=== PATIENT | female | born 1995 | race Hispanic/Latino ===

== ENCOUNTER 2018-03-03 17:24 | Emergency (ER) | payer OTHER ==
[2018-03-03 17:33] VITALS: BP 127/83
[2018-03-03] MEDS ORDERED: TORADOL IV ONE (19:24)
[2018-03-03 19:34] LABS: Bacteria,Urine 2+ /HPF (Negative); Hyaline Casts,Urine 1 /LPF
[2018-03-03 19:42] LABS: HCG Qualitative,Urine Negative (Negative)
--- NOTE | 2018-03-03 19:43 | Emergency Department Report ---
ED Back Pain/Injury HPI - General Chief Complaint: Back Pain/Injury Stated Complaint: LOWER BACK INJURY Time Seen by Provider: 03/03/18 19:06 Source: EMS Limitations: Physical Limitation - History of Present Illness Initial Comments: 23-year-old female comes in stating that she was kneed in the back while playing basketball around 1515 today. Patient reports that the pain is sharp 829 out of 10 with movement and at rest it that 1 out of 10. Patient denies any urinary or bowel incontinence. Patient reports no past medical history currently takes no medications on a daily basis has no known drug allergies and does not do illicit drugs. Patient is accompanied by her father. Patient was given fentanyl by EMS prior to arrival. MD Complaint: back pain, back injury -: This afternoon (1514) Similar Symptoms Previously: No Place: school ( [facility]) Radiation: none Severity: severe Severity scale (0 -10): 9 Quality: sharp Consistency: constant Improves With: immobilization Worsens With: movement Associated Symptoms: difficulty walking Treatments Prior to Arrival: prescription analgesics (EMS fentanyl) - Related Data Previous Rx's Medication Instructions Recorded Last Taken Type Ibuprofen [Motrin 600 MG tab] 600 mg PO Q8H PRN #30 tablet 03/03/18 Unknown Rx Allergies Allergy/AdvReac Type Severity Reaction Status Date / Time No Known Allergies Allergy Unverified 03/03/18 17:33 ED Review of Systems ROS: Stated complaint: LOWER BACK INJURY Other details as noted in HPI Comment: All other systems reviewed and negative Gastrointestinal: denies: abdominal pain, nausea, vomiting, diarrhea Musculoskeletal: back pain Neurological: denies: headache, weakness, paresthesias ED Past Medical Hx - Past Medical History Previous Medical History?: No - Surgical History Additional Surgical History: t&a - Social History Smoking Status: Never Smoker Substance Use Type: None - Medications Home Medications: Home Medications Medication Instructions Recorded Confirmed Last Taken Type Ibuprofen [Motrin 600 MG tab] 600 mg PO Q8H PRN #30 tablet 03/03/18 Unknown Rx ED Physical Exam - General Limitations: Physical Limitation General appearance: alert, in no apparent distress - Head Head exam: Present: atraumatic, normocephalic - Eye Eye exam: Present: EOMI - ENT ENT exam: Present: mucous membranes moist - Neck Neck exam: Present: full ROM. Absent: tenderness - Respiratory Respiratory exam: Present: normal lung sounds bilaterally. Absent: respiratory distress - Cardiovascular Cardiovascular Exam: Present: regular rate, normal rhythm. Absent: systolic murmur, diastolic murmur, rubs, gallop - GI/Abdominal GI/Abdominal exam: Present: soft, normal bowel sounds - Back Exam Back exam: Present: vertebral tenderness (lumbar sacral) - Neurological Exam Neurological exam: Present: alert, oriented X3 - Psychiatric Psychiatric exam: Present: normal affect, normal mood - Skin Skin exam: Present: warm, dry, intact, normal color. Absent: rash ED Course Vital Signs 03/03/18 03/03/18 03/03/18 17:31 19:15 19:33 Temperature 98.1 F Pulse Rate 113 H 90 Respiratory 20 18 18 Rate Blood Pressure 127/83 O2 Sat by Pulse 100 98 Oximetry ED Medical Decision Making - Radiology Data Radiology results: report reviewed FINAL REPORT PROCEDURE: CT LUMBAR SPINE WO CON TECHNIQUE: Computerized axial tomography of the lumbar spine was performed from T12 to the sacrum without contrast material. HISTORY: kneed in lower spine, COMPARISON: No prior studies are available for comparison. FINDINGS: L1-2: No significant abnormality. L2-3: No significant abnormality. L3-4: No significant abnormality. L4-5: No significant abnormality. L5-S1: No significant abnormality. Other: None. IMPRESSION: No significant abnormality Transcribed By: [facility] [place] Dictated By: ISABEL DUMONT Electronically Authenticated By: ISABEL DUMONT Signed Date/Time: 03/03/182055 DD/ 57 TD/TT: 03/03/182057 - Medical Decision Making Patient has been evaluated by this provider in fast track. Patient was given fentanyl 50 g and EMS by IVP Patient be given Toradol 10 mg IV Urinalysis has been sent out CT of lumbar sacral has been ordered. The patient has vertebral tenderness with difficulty to walk. CT results was shows no abnormalities. Urinalysis shows no hematuria shows a just a trace of ketones. Discharge patient home on ibuprofen 600 mg every 8 hours as needed. Patient is to increase her water intake by 2 L a day. She is to follow-up with her primary care provider if her symptoms persist or gets worse. Critical care attestation.: If time is entered above; I have spent that time in minutes in the direct care of this critically ill patient, excluding procedure time. ED Disposition Clinical Impression: Back contusion Qualifiers: Encounter type: initial encounter Laterality: unspecified laterality Qualified Code(s): S20.229A - Contusion of unspecified back wall of thorax, initial encounter Disposition: TO HOME OR SELFCARE Is pt being admited?: No Does the pt Need Aspirin: No Condition: Stable Instructions: Acute Low Back Pain (ED), Low Back Strain (ED) Additional Instructions: Please take pain medication only as needed. Please increase her water intake by 2-3 L a day while taking ibuprofen. If his symptoms persist or gets worse please follow up with her primary care provider. Prescriptions: Ibuprofen [Motrin 600 MG tab] 600 mg PO Q8H PRN #30 tablet PRN Reason: Pain Referrals: Your,Provider [Other] - 3-5 Days Forms: Work/School Release Form(ED)
[2018-03-03 19:57] LABS: Bilirubin,Urine NEG (Negative); Blood,Urine NEG (Negative); Color,Urine Straw (Yellow); Mucus,Urine FEW /HPF; Protein,Urine <15 mg/dL mg/dL (Negative); Urobilinogen,Urine < 2.0 mg/dL (<2.0)
--- NOTE | 2018-03-03 20:56 | Cat Scan Report ---
FINAL REPORT PROCEDURE: CT LUMBAR SPINE WO CON TECHNIQUE: Computerized axial tomography of the lumbar spine was performed from T12 to the sacrum wi thout contrast material. HISTORY: kneed in lower spine, COMPARISON: No prior studies are available for comparison. FINDINGS: L1-2: No significant abnormality. L2-3: No significant abnormality. L3-4: No significant abnormality. L4-5: No significant abnormality. L5-S1: No significant abnormality. Other: None. IMPRESSION: No significant abnormality
== END 2018-03-03 21:35 | disposition home or self-care (01) ==
LOC: EDBD → ED 17:24
DX: S20.229A Contusion of unspecified back wall of thorax, initial encounter (principal); W50.0XXA Accidental hit or strike by another person, initial encounter; Y93.67 Activity, basketball; Y99.8 Other external cause status; Y92.219 Unspecified school as the place of occurrence of the external cause
CPT/HCPCS: 72131; 81001; 81025; 96374; 99284; J1885